=== PATIENT | female | born 1995 | race Caucasian/White ===

== ENCOUNTER 2018-04-30 19:19 | Emergency (ER) | payer SELFPAY ==
[2018-04-30] MEDS: ACETAMINOPHEN 500 MG TAB PO (22:14)
== END 2018-04-30 22:25 | disposition home or self-care (01) ==
LOC: FTE 19:19
DX: S13.9XXA Sprain of joints and ligaments of unspecified parts of neck, initial encounter (principal); R07.89 Other chest pain; V49.40XA Driver injured in collision with unspecified motor vehicles in traffic accident, initial encounter
CPT/HCPCS: 71045; 72040; 99284-25